=== PATIENT | male | born 1990 | race African-American/Black ===

== ENCOUNTER 2024-06-12 11:01 | Emergency (ER) | payer OTHER ==
[~2024-06-12] VITALS: Ht 180.3 cm; Wt 89.4 kg
[2024-06-12] MEDS ORDERED: DEXAMETHASONE SODIUM PHOSPHATE 4 MG/ML VIAL IM STA (13:27)
[2024-06-12] MEDS ORDERED: DEXAMETHASONE SODIUM PHOSPHATE 4 MG/ML VIAL ONE (13:58)
== END 2024-06-12 16:25 | disposition home or self-care (01) ==
LOC: ER 11:03
DX: M25.561 Pain in right knee (principal); Z91.013 Allergy to seafood
CPT/HCPCS: 73560; 96372; 99283; J1100